=== PATIENT | male | born 1965 | race African-American/Black ===

== ENCOUNTER 2017-02-26 14:39 | Emergency (ER) | payer OTHER, MEDICAID ==
[~2017-02-26] VITALS: Ht 182.9 cm; Wt 90.7 kg
[2017-02-26] MEDS ORDERED: OLAN15TA3 PO (14:52)
--- NOTE | 2017-02-26 15:00 | NUR ---
[facility] provided for pt.
[2017-02-26 15:54] LABS: BASOPHILS # (AUTO) 0.2 K/uL (0.0-8.0); BASOPHILS % (AUTO) 2.2 % (0.0-2.0); EOSINOPHILS # (AUTO) 0.1 K/uL (0.0-0.7); HEMATOCRIT 43.7 % (40-50); HEMOGLOBIN 14.3 G/DL (14.0-18.0); LYMPHOCYTES # (AUTO) 2.9 K/UL (0.8-4.8); LYMPHOCYTES % (AUTO) 30.5 % (20.5-51.5); MEAN CORPUSCULAR HEMOGLOBIN 29.2 UUG (27.0-31.0); MEAN CORPUSCULAR HGB CONC 33 g/dL (32.0-37.0); MEAN CORPUSCULAR VOLUME 89.1 FL (82.0-92.0); MONOCYTES # (AUTO) 0.8 K/UL (0.1-1.30); MONOCYTES % (AUTO) 8.1 % (0.0-11.0); NEUTROPHILS # (AUTO) 5.5 K/UL (1.8-8.9); NEUTROPHILS % (AUTO) 58.2 % (38.5-71.5); PLATELET COUNT (AUTO) 326 K/UL (150-450); RED BLOOD CELL COUNT(AUTO) 4.91 MIL/UL (4.7-6.1); WHITE BLOOD COUNT (AUTO) 9.5 K/UL (4.0-11.2)
[2017-02-26 15:57] LABS: CARBON DIOXIDE 28 mmol/L (21-32); CHLORIDE 102 mmol/L (98-107); CREATININE 1.1 mg/dL (0.6-1.3); GLUCOSE 134 mg/dL (74-106); POTASSIUM 3.8 mmol/L (3.5-5.1); UREA NITROGEN, BLOOD 15 mg/dL (7-18)
[2017-02-26 16:06] LABS: ALANINE AMINOTRANSFERASE 16 U/L (16-63); ALKALINE PHOSPHATASE 59 U/L (50-136); ASPARTATE AMINOTRANSFERASE 24 U/L (15-37); BILIRUBIN,DIRECT 0.1 mg/dL (0.0-0.2); BILIRUBIN,TOTAL 0.3 mg/dL (0.2-1.0); TOTAL PROTEIN, SERUM 8.2 g/dL (6.4-8.2)
--- NOTE | 2017-02-26 16:30 | NUR ---
CALLED [facility] AND LEFT A MESSAGE FOR PSYCH EVAL
--- NOTE | 2017-02-26 16:40 | NUR ---
TALKED TO MIO TRUONG REGARDING THE PT
[2017-02-26 16:41] LABS: ETHANOL < 3 MG/DL (0-0)
--- NOTE | 2017-02-26 17:54 | NUR ---
[facility] AT BEDSIDE FOR PSYCH EVAL
--- NOTE | 2017-02-26 18:04 | NUR ---
CALLED [facility] AND UPDATED THEM THAT THE PT IS ON HOLD FOR SI
--- NOTE | 2017-02-26 18:12 | NUR ---
[facility] CALLED BACK AND GAVE THE AUTHORIZATION NUMBER OF [phone]
--- NOTE | 2017-02-26 18:30 | NUR ---
[facility] hot food tray provided for pt.
--- NOTE | 2017-02-26 19:02 | NUR ---
summary report, the hold and face sheet faxed to [facility] at [phone]
--- NOTE | 2017-02-26 19:15 | NUR ---
Received report from EDWARDO Jordan. Assumed care of pt at this time. Pt resting in position of comfort for self. No complaints at this time. Pt calm and cooperative. Awaiting call back from [facility] for placement. Addendum: 02/26/17 at 2308 by ANAID Pt admits to being depressed and admits to SI, denies HI. Admits to hearing voices telling him to hurt himself.
--- NOTE | 2017-02-26 20:10 | NUR ---
Asia from [facility] called. Pt will be going to [facility] [address] Couch accepting. Call report to [phone]. BLS transport established by [facility] approx [phone].
--- NOTE | 2017-02-26 22:00 | NUR ---
Pt resting in position of comfort for self with eyes closed, resp even and unlabored. No obvious signs of distress. Pt remains calm and cooperative
[2017-02-26 23:00] LABS: *BILIRUBIN,URIN NEGATIVE (NEGATIVE); *BLOOD, URINE NEGATIVE (NEGATIVE); *CLARITY,URINE CLEAR (CLEAR); *COLOR,URINE YELLOW (YELLOW); *KETONES,URINE NEGATIVE (NEGATIVE); *PROTEIN,URINE NEGATIVE (NEGATIVE); *UROBILINOGEN,URINE 0.2 E.U./dl (NORMAL); LEUKOCYTE ESTERASE ,URINE NEGATIVE (NEGATIVE); NITRITE, URINE NEGATIVE (NEGATIVE); PH,URINE 6.5 (5.0-8.0); UGLUCOSE NEGATIVE (NEGATIVE)
[2017-02-26 23:08] LABS: *AMPHETAMINE, URINE NEGATIVE (NEGATIVE); *BARBITURATE, URINE NEGATIVE (NEGATIVE); *CANNABINOID, URINE POSITIVE (NEGATIVE); *COCCAINE, URINE NEGATIVE (NEGATIVE); *OPIATE, URINE NEGATIVE (NEGATIVE); *PHENCYCLIDINE SCREEN,URINE NEGATIVE (NEGATIVE); BACTERIA,URINE FEW /HPF (NONE SEEN); RBC,URINE 0-3 /HPF (0-3); SQUAMOUS EPITHELIAL CELL,UR FEW /HPF (NONE SEEN); WBC,URINE 0-3 /HPF (0-3)
--- NOTE | 2017-02-26 23:08 | NUR ---
INDYS at bedside. Report called to EDWARDO Brennan at [facility] [address]. Preparing to transfer pt.
== END 2017-02-26 23:17 | disposition short-term general hospital (02) ==
LOC: ER 14:44
DX: R45.851 Suicidal ideations (principal); F32.9 Major depressive disorder, single episode, unspecified; F41.9 Anxiety disorder, unspecified; F20.9 Schizophrenia, unspecified; F10.20 Alcohol dependence, uncomplicated; F17.200 Nicotine dependence, unspecified, uncomplicated; F12.10 Cannabis abuse, uncomplicated
CPT/HCPCS: 36415; 80048; 80076; 80307; 81001; 85025; 99285; A4663; G0480